=== PATIENT | female | born 1945 | race Caucasian/White ===

== ENCOUNTER 2017-10-18 09:24 | Outpatient (CLI) | payer OTHER | END 2017-10-18 15:57 | disposition home or self-care (01) | LOC: RAD 09:24 | DX: H25.819 Combined forms of age-related cataract, unspecified eye (principal); Z01.810 Encounter for preprocedural cardiovascular examination ==

== ENCOUNTER 2017-10-23 06:46 | Outpatient (CLI) | payer OTHER | END 2017-10-23 07:14 | disposition home or self-care (01) | LOC: LAB 06:46 | DX: I10 Essential (primary) hypertension (principal); R82.99 Other abnormal findings in urine; R70.0 Elevated erythrocyte sedimentation rate; M05.79 Rheumatoid arthritis with rheumatoid factor of multiple sites without organ or systems involvement; D64.89 Other specified anemias; R79.82 Elevated C-reactive protein (CRP); R76.0 Raised antibody titer; M06.4 Inflammatory polyarthropathy; R78.89 Finding of other specified substances, not normally found in blood; M35.00 Sjogren syndrome, unspecified; D86.89 Sarcoidosis of other sites; E78.2 Mixed hyperlipidemia; D89.812 Acute on chronic graft-versus-host disease; M32.8 Other forms of systemic lupus erythematosus ==

== ENCOUNTER 2018-04-28 18:32 | Emergency (ER) | payer OTHER ==
[~2018-04-28] VITALS: Ht 175.3 cm; Wt 99.8 kg
[2018-04-28] MEDS ORDERED: [UNRECOGNIZED DRUG - OTHER] (19:30)
[2018-04-28] MEDS ORDERED: TOPROL XL100 M1 (19:37)
[2018-04-29] MEDS ORDERED: BUDESONIDE0.5 MG/2 M IH (02:22)
[2018-04-29] MEDS ORDERED: MUCINEX DM ER1 EAC1 PO (02:22)
[2018-04-29] MEDS ORDERED: LEVALBUTER1.25 MG/3 IH (02:22)
[2018-04-29] MEDS ORDERED: ZITHROMAX500 MG PO (02:22)
== END 2018-04-29 02:49 ==
LOC: ER 18:32
DX: J20.9 Acute bronchitis, unspecified (principal); J18.9 Pneumonia, unspecified organism

== ENCOUNTER 2018-06-23 09:25 | Outpatient (CLI) | payer OTHER ==
[~2018-06-23 09:25] MED LIST: BUDESONIDE0.5 MG/2 M IH; LEVALBUTER1.25 MG/3 IH; MUCINEX DM ER1 EAC1 PO; TOPROL XL100 M1; ZITHROMAX500 MG PO; [UNRECOGNIZED DRUG - OTHER]
== END 2018-06-23 17:00 | disposition home or self-care (01) ==
LOC: RAD 09:25
DX: M05.79 Rheumatoid arthritis with rheumatoid factor of multiple sites without organ or systems involvement (principal); M17.0 Bilateral primary osteoarthritis of knee; M17.11 Unilateral primary osteoarthritis, right knee; M17.12 Unilateral primary osteoarthritis, left knee; M19.011 Primary osteoarthritis, right shoulder; M19.012 Primary osteoarthritis, left shoulder; M15.0 Primary generalized (osteo)arthritis

== ENCOUNTER 2018-09-24 08:58 | Outpatient (CLI) | payer OTHER | END 2018-09-24 17:00 | disposition home or self-care (01) | LOC: MRI 08:58 | DX: M17.0 Bilateral primary osteoarthritis of knee (principal) | CPT/HCPCS: 73721 ==

== ENCOUNTER → 2019-01-20 | Outpatient (CLI) | payer OTHER | END | disposition home or self-care (01) | LOC: MRI 01-16 07:15 | DX: M25.562 Pain in left knee (principal) | CPT/HCPCS: 73721 ==

== ENCOUNTER 2019-07-22 08:23 | Outpatient (CLI) | payer OTHER | END 2019-07-22 08:32 | disposition home or self-care (01) | LOC: MAMO-SONO 08:23 | DX: Z12.31 Encounter for screening mammogram for malignant neoplasm of breast (principal); Z87.898 Personal history of other specified conditions ==

== ENCOUNTER 2025-03-25 10:34 | Outpatient (CLI) | payer OTHER | END 2025-03-25 10:42 | disposition home or self-care (01) | LOC: RAD 10:34 | PROVIDERS: ATTEND Internal Medicine | DX: M81.0 Age-related osteoporosis without current pathological fracture (principal); M25.532 Pain in left wrist; M25.541 Pain in joints of right hand; M25.542 Pain in joints of left hand; I11.9 Hypertensive heart disease without heart failure; G47.33 Obstructive sleep apnea (adult) (pediatric) ==

== ENCOUNTER → 2025-03-25 | Outpatient (CLI) | payer OTHER | END | disposition home or self-care (01) | LOC: NUCLEAR 11:26 | PROVIDERS: ATTEND Internal Medicine | DX: M81.0 Age-related osteoporosis without current pathological fracture (principal) ==